=== PATIENT | female | born 1970 | race African-American/Black ===

== ENCOUNTER 2016-06-01 19:04 | Emergency (ER) | payer MEDICARE, MEDICAID ==
[~2016-06-01 19:04] MED LIST: Sodium Chloride 0.9% 1,000 ML BAG ONE
[2016-06-01] MEDS ORDERED: diphenhydrAMINE HCl 50 MG/ML 1 ML VIAL ONE (20:50)
[2016-06-01] MEDS ORDERED: Oxymetazoline HCl 0.05% ( 15 ML ) ONE (20:50)
[2016-06-01] MEDS ORDERED: Metoclopramide HCl 10 MG/2 ML VIAL ONE (20:50)
[2016-06-01] MEDS ORDERED: Ketorolac Tromethamine 30 MG/ML VIAL ONE (20:50)
[2016-06-01] MEDS ORDERED: Ondansetron HCl/PF 4 MG/2 ML Vial ONE (20:50)
[2016-06-01] MEDS ORDERED: AMOXicillin 250 MG CAP ONE (20:50)
--- NOTE | 2016-06-01 20:52 | CT ---
CT HEAD WITHOUT CONTRAST: 06/01/16 Multiple axial tomograms obtained through the head without IV enhancement. HISTORY: Headache. No evidence of intracranial mass or hemorrhage. No evidence of acute infarct. The sinuses and mastoi ds are well aerated. IMPRESSION: No acute abnormality identified. POS: [facility]
== END 2016-06-01 22:10 | disposition home or self-care (01) ==
LOC: MADERS 19:04
DX: G43.909 Migraine, unspecified, not intractable, without status migrainosus (principal); J01.90 Acute sinusitis, unspecified; E03.9 Hypothyroidism, unspecified; F17.210 Nicotine dependence, cigarettes, uncomplicated; Z79.899 Other long term (current) drug therapy
CPT/HCPCS: 70450; 96361; 96374; 96375; J1200; J1885; J2405; J2765; J7050